=== PATIENT | male | born 1950 | race Caucasian/White ===

== ENCOUNTER 2017-05-21 05:15 | Day surgery (SDC) | payer OTHER ==
[2017-05-06 10:43] VITALS: BMI 24.3
[2017-05-21] MEDS ORDERED: BUPIVACAINE HCL/PF 0.25% (2.5MG/ML) 10 ML VIAL ONE (10:29)
[2017-05-21] MEDS ORDERED: MIDAZOLAM HCL 2 MG/2 ML SINGLE DOSE VIAL ONE ×2 (10:32)
[2017-05-21] MEDS ORDERED: LIDOCAINE 1%/EPI 1:100000 (20 ML MULTI DOSE VIAL) ONE (12:17)
[2017-05-21] MEDS ORDERED: ceFAZolin SODIUM 1 GM VIAL ONE (12:29)
[2017-05-21] MEDS ORDERED: PROPOFOL 20 ML ONE (12:29)
[2017-05-21] MEDS ORDERED: LIDOCAINE HCL/PF 2% SDV 5ML VIAL ONE (12:29)
[2017-05-21] MEDS ORDERED: ceFAZolin SODIUM 1 GM VIAL IVPB ONE (12:36)
[2017-05-21] MEDS ORDERED: BUPIVACAINE HCL/PF 0.5% (5MG/ML) 10 ML VIAL IJ ONE (12:45)
[2017-05-21] MEDS ORDERED: LIDOCAINE 1%/EPI 1:100000 (20 ML MULTI DOSE VIAL) IJ ONE (12:45)
[2017-05-21] MEDS ORDERED: DEXAMETHASONE SOD PHOSPHATE 4 MG/1 ML VIAL ONE (12:51)
[2017-05-21] MEDS ORDERED: oxyCODONE HCL 5 MG TABLET PO PRN (14:13)
[2017-05-21] MEDS ORDERED: ONDANSETRON 4 MG/2 ML VIAL IVPUSH PRN (14:13)
[2017-05-21] MEDS ORDERED: LACTATED RINGERS SOLUTION 1,000 ML IV SCH (14:15)
--- NOTE | 2017-05-21 14:18 | OP ---
Operative Note - Note: Operative Date: 05/21/17 Pre-Operative Diagnosis: Right inguinal hernia Operation: Repair right direct and indirect hernia with plug and patch Post-Operative Diagnosis: Same as Pre-op Surgeon: Adis Deutsch Manager Intermediate: Jefferson Miller Anesthesiologist/GARDENING MANAGER: Jaymie Maguire Anesthesia: General Estimated Blood Loss (mls): 5 Fluid Volume Replaced (mls): 800 Operative Report Dictated: Yes
--- NOTE | 2017-05-21 14:19 | SURG ---
Surgery Applications Engineering Manager Note Date of Service: 05/21/17 Diagnosis: Right direct and indirect hernias Procedure: Repair right direct and indirect hernias with mesh plug and patch I was present for the entirety of the operative procedure. For further detail, please refer to operative report. Visit type - Case Type Case Type: Scheduled Admission - New patient This patient is new to me today: Yes Date on this admission: 05/21/17
[2017-05-21] MEDS ORDERED: ACETAMINOPHEN 1000 MG/100 ML VIAL (NON FORMULARY) IVPB ONE (14:31)
[2017-05-21 15:28] VITALS: TEMP 97.8
[2017-05-21] MEDS ORDERED: oxyCODONE HCL 5 MG TABLET ONE (16:11)
[2017-05-21 16:51] VITALS: BP 108/55; PULSE 78
--- NOTE | 2017-05-25 13:19 | PATH ---
Surgical Pathology Report Patient Name: VINEET PEPE [facility]. Rec. #: [id number] /Age/Gender: 1950 (Age: 66) / M Account: [id number] Location: [facility] SURGICAL Taken: 05/21/2017 Received: 05/24/2017 Reported: 05/25/2017 Physicians: Adis Deutsch M.D. Specimen(s) Received A: RIGHT INGUINAL HERNIA SAC INDIRECT B: RIGHT INGUINAL HERNIA SAC DIRECT Clinical History Right inguinal hernia Final Diagnosis A. INGUINAL HERNIA SAC, INDIRECT, RIGHT, HERNIA REPAIR: MESOTHELIAL LINED FIBROADIPOSE TISSUE CONSISTENT WITH HERNIA SAC. B. INGUINAL HERNIA SAC, DIRECT, RIGHT, HERNIA REPAIR: MESOTHELIAL LINED FIBROADIPOSE TISSUE CONSISTENT WITH HERNIA SAC. Electronically Signed Nupur Longo M.D. Gross Description A. Received in formalin labeled "right inguinal hernia sac indirect," is a 2.5 x 1.6 x 0.5 cm quintero-urrutia, irregular portion of fibromembranous tissue with minimal attached fat. The specimen is sectioned and entirely submitted in one cassette. B. Received in formalin labeled "right inguinal hernia sac direct," is a 3.5 x 3.0 x 1.5 cm quintero urrutia, irregular portion of fibromembranous tissue with moderate attached fat. Manager Environmental Health And Safety sections are submitted in one cassette. 05/24/201705/24/2017
== END 2017-05-21 16:50 | disposition home or self-care (01) ==
LOC: JASU-SURG 05:15
PROVIDERS: ATTEND Surgery
PROC: 0YU50JZ Supplement Right Inguinal Region with Synthetic Substitute, Open Approach (ICD-10-PCS; principal; 2017-05-21 11:30)
DX: K40.90 Unilateral inguinal hernia, without obstruction or gangrene, not specified as recurrent (principal)
CPT/HCPCS: 82962; 88302-TC; 94760; J0131